=== PATIENT | male | born 1975 | race Two or more races ===

== ENCOUNTER 2019-08-31 10:00 | Inpatient (IN) | payer OTHER ==
[~2019-08-31] VITALS: Ht 177.8 cm; Wt 92.1 kg
[2019-08-31] MEDS ORDERED: CLONAZEPAM2 M1 PO (14:55)
[2019-08-31] MEDS ORDERED: ULTRAM50 MG PO (14:55)
[2019-08-31] MEDS ORDERED: AMBIEN10 MG PO (14:55)
[2019-09-09] MEDS ORDERED: PERCOCET 5-3251 EACH PO (16:27)
[2019-09-09] MEDS ORDERED: INTESTINEX680 M1 PO (16:27)
[2019-09-09] MEDS ORDERED: OMEPRAZOLE MAGN20 MG PO (16:27)
== END 2019-09-09 18:23 | disposition home or self-care (01) | DRG 331 ==
LOC: O/R 10:00 → EDBD 09-06 10:00 → SURG 09-06 10:00 → SURH 09-07 06:25 → O/R 09-07 06:25 → MEDJ 09-07 20:40 → O/R 09-07 20:43 → SURH 09-07 20:44
PROVIDERS: ADMIT Colon & Rectal Surgery
PROC: 0DJD8ZZ Inspection of Lower Intestinal Tract, Via Natural or Artificial Opening Endoscopic (ICD-10-PCS; 2019-09-07)
PROC: 0DTN4ZZ Resection of Sigmoid Colon, Percutaneous Endoscopic Approach (ICD-10-PCS; principal; 2019-09-07 17:45)
DX: K57.32 Diverticulitis of large intestine without perforation or abscess without bleeding (principal); I12.9 Hypertensive chronic kidney disease with stage 1 through stage 4 chronic kidney disease, or unspecified chronic kidney disease; N18.2 Chronic kidney disease, stage 2 (mild); F41.8 Other specified anxiety disorders